=== PATIENT | male | born 1985 | race Caucasian/White ===

== ENCOUNTER → 2018-02-01 | Outpatient (CLI) | payer OTHER, BC ==
[~2018-02-01] MED LIST: AMOXICILLIN; CORTISPORIN OTI10 M2 OTIC; HYDROCODONE-AP1 EAC6 PO; NORCO 5-325 TA1 EACH PO; OMEPRAZOLE 20 M20 MG PO; ZYRTEC10 M4 PO; [UNRECOGNIZED DRUG - REMARK]
== END ==
LOC: M.ULTRA 08:00
DX: K76.0 Fatty (change of) liver, not elsewhere classified (principal)

== ENCOUNTER → 2018-02-04 | Outpatient (CLI) | payer OTHER, BC | LOC: M.CT 12:20 | DX: K76.0 Fatty (change of) liver, not elsewhere classified (principal); R16.1 Splenomegaly, not elsewhere classified ==

== ENCOUNTER → 2018-02-15 | Outpatient (CLI) | payer OTHER, BC | LOC: M.RAD 09:10 | DX: R05 Cough (principal) ==

== ENCOUNTER → 2018-03-11 | Day surgery (SDC) | payer OTHER, BC ==
--- NOTE | 2018-03-15 07:49 | PATH ---
[address] [address] PATHOLOGY RPT PROCEDURE Name: NAVID KELLEY Room: [facility]..#: [id number] Admission: 03/11/18 Date of : 81 Discharge: Report #: [id number] Path Case #: [id number] [facility] Accession Number: [id number] . 01 Material submitted: . GALLBLADDER . 01 Clinical history: . Cholelithiasis . 02 Diagnosis: Gallbladder: - Chronic cholecystitis with cholesterol polyp. (see comment) [facility] . 02 Comment: No gallstones were identified in the submitted specimen. (YAHIR:mml; 03/14/18) . 02 Electronically signed: . Elpidio Castellano MD, Pathologist NPI- [id number] . 01 Gross description: . Received in formalin labeled "Navid Kelley, gallbladder" and consists of a glistening, delfina, focally green and intact gallbladder measuring 7.0 cm in length by 3.5 cm in diameter. The lumen contains carlos to yellow bile and a "free floating" polypoid structure, 0.4 cm in greatest dimension. No other polyps are identified. No calculi are presen The wall averages 0.1 cm thick. The mucosa is velvety and carlos. System Operation Superintendent sections are submitted as A1. (VIVIAN; 03/11/2018) JBR/JBR . 02 Pathologist provided ICD-10: K81.1, K82.4 . 02 CPT . 895758 Performed at: [address], [place], [place] [id number] MD Homer Capellan MD Phone: [phone] Performed at: 02 [facility] [address], [place], [place] [id number] MD Elpidio Castellano MD Phone: [phone]
--- NOTE | 2018-03-22 14:38 | OP ---
[address] [address] OPERATIVE REPORT Name: NAVID KELLEY Room: [facility].#: [id number] Admission: 03/11/18 Attend Phys: Dagmar Ybarra DO Discharge: Date of : 81 Report #: [id number] THIS REPORT FOR: //name// CC: Dagmar Lyvan Melgoza DATE OF SERVICE: 03/11/2018 PREPROCEDURE DIAGNOSIS: Gallstones. POSTPROCEDURE DIAGNOSIS: Gallstones. SURGEON: Dagmar Ybarra DO. COSURGEON: Bill Vick, PGY-3. CAKE WASHER: Marquis Loza PGY1. PROCEDURE PERFORMED: Laparoscopic cholecystectomy. ANESTHESIA TYPE: General endotracheal and local. ESTIMATED BLOOD LOSS: 2. DRAINS: None. SPECIMENS: Gallbladder. COMPLICATIONS: None. CONDITION: Stable. DISPOSITION: PACU to home. HISTORY OF PRESENT ILLNESS: The patient is a very pleasant 33-year-old male who presented to my office with a complaint of abdominal pain. He has undergone an ultrasound, which did show gallstones and a fatty liver. He was then consented for laparoscopic cholecystectomy. Risks discussed included bleeding; infection; pain; scar formation; injury to bowel, liver, bile duct; hernia at the incision sites, need for an open procedure and risks of general anesthesia. The patient understood these risks and elected to proceed. DESCRIPTION OF PROCEDURE: The patient was brought to the operating room. He was laid supine on the operating room table. SCDs were placed on bilateral lower extremities. Ancef was given in the perioperative period. General endotracheal anesthesia was induced by Anesthesia [place] [address] OPERATIVE REPORT Name: NAVID KELLEY Room: [facility].#: [id number] Admission: 03/11/18 Attend Phys: Dagmar Ybarra DO Discharge: Date of : 81 Report #: [id number] was prepped and draped in standard sterile fashion. Timeout was performed to verify patient and procedure. A 10 mL of 0.5% Marcaine were injected in the infraumbilical area. Incision was made with #15 blade. Cautery was used for hemostasis. S retractors were used to visualize the fascia. Kochers were used to elevate the fascia. Fascia was incised using cautery. Peritoneum was bluntly entered using a Heydi clamp. Finger was swept into the abdomen to assure that there were no valerio-incisional adhesions, none were identified. Two stitches of 0 Vicryl placed on the fascia. Trent trocar was introduced and secured with 0 Vicryl stitches. Abdomen was insufflated. The patient was placed head-up and tilted left side down. Camera was introduced and a brief anterior abdominal exploration was undertaken with no significant findings. An 11 mm trocar was introduced in the subxiphoid area as well as two right upper quadrant trocars, which were 5 mm. Gallbladder was grasped and raised towards the patient's head. Cautery was used to incise the peritoneum overlying the triangle of Calot. Duct and artery were then both easily visualized as was the common bile duct. Duct and artery were circumferentially dissected free. Any tissues posterior to the artery were stripped away. This then afforded the critical view. Duct and artery were both doubly clipped and ligated with scissors. Gallbladder was then removed from the liver bed with cautery with no further difficulties. Specimen was placed within an EndoCatch bag. Liver bed was inspected. It was hemostatic. Clips were inspected. They were intact. Right upper quadrant was irrigated until clear. Trocars were removed under direct visualization. There was no bleeding noted from the peritoneum. Abdomen was then completely desufflated. Trent trocar was removed and EndoCatch bag was removed with the specimen intact. Kochers were placed on the fascia of our infraumbilical port. Previously placed 0 Vicryl stitch was removed and a #0 Vicryl stitch was placed in [id number] fashion with excellent approximation of the fascia. An additional 10 mL of 0.5% Marcaine were injected in the fascia. All wounds were closed with 4-0 Monocryl. A total of 50 mL of 0.5% Marcaine were used to anesthetize the wounds. Wounds were then cleansed and covered with Mastisol, Steri-Strips, 4 x 4's, and Tegaderm. The patient was then allowed to awake from anesthesia, was extubated and transported to the recovery room with no further difficulties. Counts were correct x 2 at the conclusion of the case. <ELECTRONICALLY SIGNED> By: Dagmar Ybarra DO 03/22/18 1438 1342 1420Chelke Ybarra DO /nt
== END | disposition home or self-care (01) ==
LOC: M.SUR 06:55
DX: K80.10 Calculus of gallbladder with chronic cholecystitis without obstruction (principal); K21.9 Gastro-esophageal reflux disease without esophagitis; Z91.041 Radiographic dye allergy status; Z91.040 Latex allergy status; Z79.899 Other long term (current) drug therapy; Z79.891 Long term (current) use of opiate analgesic; Z98.890 Other specified postprocedural states

== ENCOUNTER 2019-05-04 01:41 | Emergency (ER) | payer BC ==
[~2019-05-04] VITALS: Ht 182.9 cm; Wt 108.9 kg
[2019-05-04 02:10] LABS: ABSOLUTE BASOPHILS 0.1 thou/uL (0.0-0.2); ABSOLUTE EOSINOPHILS 0.1 thou/uL (0.0-0.7); ABSOLUTE LYMPHOCYTES 5.1 thou/uL (0.8-5.3); ABSOLUTE MONOCYTES 0.6 thou/uL (0.0-1.2); ABSOLUTE NEUTROPHILS 3.5 thou/uL (1.6-8.1); BASOPHILS 0.8 %; EOSINOPHILS 1.1 %; HEMATOCRIT 47.1 % (42.0-52.0); HEMOGLOBIN 15.9 gm/dL (14.0-18.0); LYMPHOCYTES 54.2 %; MCH 29.7 pg (26.0-34.0); MCHC 33.7 g/dL (28.0-37.0); MONOCYTES 6.2 %; MPV 8.1 fl. (7.2-11.1); NUCLEATED RBCS 0 /100WBC; PLATELET COUNT* 323 thou/uL (150-400); POLYS 37.7 %; RBC 5.35 mil/uL (4.50-6.00); RDW-CV 13.2 % (10.5-14.5); WBC 9.3 thou/uL (4.0-11.0)
[2019-05-04 02:13] LABS: ANION GAP 12 mmol/L (7-16); BUN 20 mg/dL (7-18); CALCIUM 8.9 mg/dL (8.5-10.1); CHLORIDE 104 mmol/L (98-107); CO2 28 mmol/L (21-32); CREATININE 1.2 mg/dL (0.6-1.3); GLUCOSE 136 mg/dL (70-99); POTASSIUM 3.4 mmol/L (3.5-5.1); SODIUM 144 mmol/L (136-145)
[2019-05-04] MEDS ORDERED: PRINIVIL20 MG PO (02:14)
[2019-05-04] MEDS ORDERED: LIPITOR10 MG PO (02:14)
[2019-05-04] MEDS ORDERED: ASPIR 8181 MG PO (02:14)
[2019-05-04] MEDS ORDERED: PLAVIX 75 MG TA75 M1 PO (02:15)
[2019-05-04 02:23] LABS: ALKALINE PHOSPHATASE 152 U/L (46-116); LIPASE 214 U/L (73-393); NT-PRO BRAIN NAT PEPTIDE 14 pg/mL (<300); SGPT 53 U/L (30-65); TOTAL BILIRUBIN 0.3 mg/dL (<0.1-1.0); TOTAL PROTEIN 7.6 g/dL (6.4-8.2); TROPONIN-I LEVEL <0.06 ng/mL (<0.06)
[2019-05-04 02:49] LABS: SGOT 23 U/L (15-37)
[2019-05-04] MEDS ORDERED: DOXYCYCLINE 10100 M1 PO (04:18)
[2019-05-04 04:57] VITALS: BP 139/53
--- NOTE | 2019-05-04 12:08 | EKG ---
[place] [address] ELECTROCARDIOGRAM REPORT Name: NAVID KELLEY Room: [facility]#: [id number] Admission: 05/04/19 Attend Phys: Discharge: 05/04/19 Date of : 81 Report #: [id number] THIS REPORT FOR: //name// [facility] ED Test Date: 2019-05-04 Test Time: 01:47:49 Pat Name: NAVID KELLEY Department: Room: Gender: M Mail Order Clerk: CATARINO : 1985 Requested By: Ac Delaney Order Number: [id number] MD: Paul Madrid Measurements Intervals [place] Rate: 117 P: 70 VA: 119 QRS: 66 QRSD: 97 T: 53 QT: 344 QTc: 480 Interpretive Statements Sinus tachycardia Low voltage with right axis deviation Borderline prolonged QT interval Baseline wander in lead(s) II,aVF,V1 No previous ECG available for comparison Electronically Signed On 05-04-2019 12:08:18 CDT by Paul Madrid [email or web address] <ELECTRONICALLY SIGNED> By: Paul Madrid MD, [facility] 05/04/19 1208 6 Paul Madrid MD, [facility] /EPI
== END 2019-05-04 04:59 | disposition left against medical advice (07) ==
LOC: M.ERS 01:41
PROVIDERS: Emergency Medicine Emergency Medical Services
DX: J18.9 Pneumonia, unspecified organism (principal); Z91.041 Radiographic dye allergy status; Z91.040 Latex allergy status